=== PATIENT | male | born 1970 | race Caucasian/White ===

== ENCOUNTER → 2021-11-02 16:46 | Outpatient (CLI) | payer BC, SELFPAY ==
[2021-11-02 18:03] LABS: Add Manual Diff / Slide Review NO; Basophils Absolute Auto 100 /uL (0-100); Basophils Percent Auto 0.6 % (0-2); Eosinophils Absolute Auto 200 /uL (0-450); Eosinophils Percent Auto 2.7 % (2-4); Hematocrit 44.6 % (41-53); Hemoglobin 15.1 g/dL (13.5-17.5); Lymphocytes Absolute Auto 3400 /uL (1100-4500); Lymphocytes Percent Auto 39.9 % (25-40); Mean Corpuscular HGB Conc 33.8 % (30-36); Mean Corpuscular Hemoglobin 29.3 PG (26-34); Mean Corpuscular Volume 86.8 fL (80-100); Monocytes Absolute Auto 500 /uL (0-900); Monocytes Percent Auto 5.4 % (3-14); Neutrophils Absolute Auto 4400 /uL (1500-7000); Neutrophils Percent Auto 51.4 % (50-75); Platelet Count 238 X10^3/uL (150-400); Red Blood Cell Count 5.14 X10^6/uL (4.5-5.9); Red Cell Distribution Width 13.8 % (11.6-14.8); White Blood Cell Count 8.5 X10^3/uL (4.5-11.0)
[2021-11-02 18:22] LABS: Alanine Aminotransferase 22 IU/L (<50); Albumin 4.2 g/dL (3.5-5.0); Albumin Globulin Ratio 1.4 (1.0-2.8); Alkaline Phosphatase 67 U/L (38-126); Aspartate Aminotransferase 24 IU/L (17-59); BUN Creatinine Ratio 16.5 (6-22); Blood Urea Nitrogen 16 mg/dL (9-20); Calcium 8.5 mg/dL (8.4-10.2); Carbon Dioxide 24 mmol/L (22-32); Chloride 106 mmol/L (98-107); Cholesterol 198 mg/dL (140-199); Estimated Glomerular Filt Rate > 60 mL/min (>60); Glucose 92 mg/dL (70-100); HDL Cholesterol 54 mg/dL (40-60); HEMOLYSIS < 15 (0-50); LDL Cholesterol Calculated 129 mg/dL (<100); Lipase 66 U/L (23-300); Sodium 137 mmol/L (137-145); Total Protein 7.2 g/dL (6.3-8.2); Triglycerides 73 mg/dL (35-150)
[2021-11-02 18:50] LABS: Erythrocyte Sedimentation Rate 2 MM/HR (0-15)
[2021-11-02 18:53] LABS: TSH w/ Reflex to FT4 1.09 uIU/mL (0.47-4.68)
== END ==
PROVIDERS: Referring Provider Pediatrics; Visit Provider Pediatrics
DX: E78.5 Hyperlipidemia, unspecified (principal); H92.01 Otalgia, right ear; M54.9 Dorsalgia, unspecified; R42 Dizziness and giddiness
CPT/HCPCS: 36415; 80053; 80061; 83690; 84443; 85025; 85651